=== PATIENT | female | born 1955 | race Caucasian/White ===

== ENCOUNTER → 2018-01-19 | Outpatient (CLI) | payer BC ==
[2018-01-19] VITALS (8 sets, daily range): BP systolic 133–170; BP diastolic 58–87
[~2018-01-19] VITALS: Ht 170.2 cm; Wt 77.1 kg
[~2018-01-19] MED LIST: ASPIR 8181 MG; CARDIZEM CD120 MG PO; CRESTOR5 MG
[2018-01-19 08:44] LABS: HEMATOCRIT 37.6 % (37.0-47.0); HEMOGLOBIN 12.6 gm/dL (12.0-15.0); MCH 27.6 pg (26.0-34.0); MCHC 33.5 g/dL (28.0-37.0); MCV 82.4 fL (80.0-100.0); MPV 9.8 fl. (7.2-11.1); RBC 4.56 mil/uL (4.20-5.00); RDW-CV 14.5 % (10.5-14.5); WBC 6.3 thou/uL (4.0-11.0)
[2018-01-19 08:45] LABS: APTT 27.8 Seconds (25.0-31.3); PROTIME 9.8 Seconds (9.20-11.50)
[2018-01-19 09:16] LABS: ANION GAP 8 mmol/L (7-16); BUN 16 mg/dL (7-18); CALCIUM 8.8 mg/dL (8.5-10.1); CHLORIDE 105 mmol/L (98-107); CO2 28 mmol/L (21-32); CREATININE 0.7 mg/dL (0.6-1.3); GLUCOSE 97 mg/dL (70-99); POTASSIUM 3.7 mmol/L (3.5-5.1); SODIUM 141 mmol/L (136-145)
[2018-01-19 09:21] LABS: ALBUMIN 3.7 g/dL (3.4-5.0); ALKALINE PHOSPHATASE 113 U/L (46-116); CHOLESTEROL 119 mg/dL (<200); HDL CHOLESTEROL 54 mg/dL (>40); LDL CHOLESTEROL 54 mg/dL (<100); SGOT 22 U/L (15-37); SGPT 29 U/L (30-65); TC:HDL 2.2 Ratio (Not establshd); TOTAL BILIRUBIN 0.4 mg/dL (<0.1-1.0); TOTAL PROTEIN 7.5 g/dL (6.4-8.2); TRIGLYCERIDE 57 mg/dL (<150); VLDL 11 mg/dL (<40)
[2018-01-19 09:22] LABS: SERUM ASSESSMENT Clear
--- NOTE | 2018-01-19 11:30 | H ---
[place] [address] HISTORY AND PHYSICAL Name: VICTOR HUGO FITZPATRICK Armani Room: [facility]#: [id number] Admission: 01/19/18 Attend Phys: Vadim Hudson MD Discharge: Date of : 55 Report #: [id number] THIS REPORT FOR: //name// CC: Delicia Hudson DATE OF SERVICE: 01/19/2018 PRIMARY CARE PHYSICIAN: KALYAN Ybarra. CHIEF COMPLAINT: Shortness of breath, abnormal stress test. HISTORY OF PRESENT ILLNESS: The patient is a 62-year-old female with high blood pressure, tobacco use and hyperlipidemia, had an abnormal stress echo, which was ordered for chest discomfort. She had ST segment changes and inferior wall motion abnormality. Ejection fraction was normal. Clinically, she is without chest pain, but has shortness of breath with only moderate activity, and this has been progressively worse over the last several weeks. She has been hypertensive. She has no documented history of heart disease. PAST MEDICAL HISTORY: Tobacco use, prior anemia, asthma, rhinitis, hypertension. PAST SURGICAL HISTORY: Tubal ligation. FAMILY HISTORY: Cancer and diabetes, but no early onset of CAD. HOME MEDICATIONS: Crestor 5 mg daily, Flonase. REVIEW OF SYSTEMS: CONSTITUTIONAL: Negative. HEENT: Negative for nosebleeds. EYES: Denies any blurred vision or loss of vision. CARDIOVASCULAR: Positive dyspnea with exertion, no chest pain, no claudication, no irregular heartbeats or leg swelling. NEUROLOGIC: No seizures, syncope, numbness or headaches. RESPIRATORY: Positive history of emphysema, no cough. No fevers or chills. HEMATOLOGIC: No anemia or bleeding disorders. RENAL: No history of kidney failure. ALLERGIES: Denies aspirin or contrast allergies or shellfish allergies. PHYSICAL EXAMINATION: VITAL SIGNS: Her blood pressure is 140/92. [place] [address] HISTORY AND PHYSICAL Name: VICTOR HUGO FITZPATRICK Room: [facility]#: [id number] Admission: 01/19/18 Attend Phys: Vadim Hudson MD Discharge: Date of : 55 Report #: [id number] GENERAL: Pleasant middle-aged woman. She is alert, no apparent distress. NECK: Supple. No jugular venous distention. CARDIOVASCULAR: Regular, I cannot hear a murmur. LUNGS: Clear to auscultation. ABDOMEN: Soft, nontender. EXTREMITIES: There is no peripheral edema. NEUROLOGIC: There are no focal deficits. LABORATORY DATA: Stress echocardiogram, 12/20/2017, revealed a resting echocardiogram demonstrated normal LV contractility, EF greater than 55%. There was aortic sclerosis without stenosis, mild mitral regurgitation, mild tricuspid regurgitation. Post-stress images showed an inferior wall motion abnormality. IMPRESSION: 1. Dyspnea. 2. Abnormal stress echocardiogram. 3. Hyperlipidemia. 4. Tobacco use prior. Based on the patient's presenting symptoms, which are likely an anginal equivalent, I have arranged for evaluation with cardiac catheterization, revascularization based on findings. <ELECTRONICALLY SIGNED> By: Vadim Hudson MD, [facility] 01/19/18 1130 [id number] Hudson MD, [facility] /nt
--- NOTE | 2018-01-19 16:07 | CARD ---
[address] [address] CARDIAC CATH REPORT Name: VICTOR HUGO FITZPATRICK Room: [facility]#: [id number] Admission: 01/19/18 Attend Phys: Vadim Hudson MD Discharge: Date of : 55 Report #: [id number] THIS REPORT FOR: //name// APPROVED REPORT Study performed: 01/19/2018 07:46:24 Patient Details Patient Status: Out-Patient Room #: The patient is a 62 year-old female Event Personnel Vadim Hudson Child Adolescent Care, Brandee Chinchilla RN Mold Operator, Cesilia Cardenas RN Monitor, Lynn Spears Scrub Procedures Performed Art Access - R radial artery Left Heart Cath w/or w/o Coronaries [id number] [facility] Hemostasis w/ hemoband Indication Positive stress test Procedure Narrative A Slender Glidesheath sheath was inserted into the right radial artery. Coronary angiography was performed using coronary diagnostic catheters. The right coronary system was accessed and visualized with a DCR: Dundee 4.0 5fr catheter. The left coronary system was accessed and visualized with a DCR: Dundee 4.0 5fr catheter. The left ventricle was accessed and visualized with a PC: Angled Pig 5fr catheter. The patient tolerated the procedure well and there were no complications associated with the procedure. There was no hematoma. Intraoperative Conscious Sedation Fentanyl 50 mcg Fluoro Time: 8.1 minutes Dose: 811 mGy Contrast Type and Amount: Visipaque 110 ml Coronary Angiography The patient's coronary anatomy is co- dominant. Diagnostic Cath Left Main short normal LAD mid body tortortuous 30% stenosis [address] [address] CARDIAC CATH REPORT Name: VICTOR HUGO FITZPATRICK Room: [facility]#: [id number] Admission: 01/19/18 Attend Phys: Vadim Hudson MD Discharge: Date of : 55 Report #: [id number] Diagonal 1 branching,larger, mid body 40% stenosis Circumflex normal OM1 branching mid 50% OM2 small normal OM3 normal, small L PDA small normal Right Coronary small tortuous, mild 30% mid to distal stenosis R PDA small, normal Left Ventriculography The left ventricle is normal in size with normal contractility. The left ventricular ejection fraction is estimated to be >55%. Left ventricular wall motion abnormalities are not present. There is no mitral insufficiency. EDP normal,this a 5mmHg peak to peak gradient across moderately calcified aortic valve Hemodynamics The aortic pressure is 123/71 mmHg with a mean of 95 mmHg. The left ventricular pressure is 116/2 mmHg with a mean of mmHg. The left ventricular end diastolic pressure is 11 mmHg. Conclusion 1. Mild to moderate CAD 2. normal LV function 3. very mild aortic stenosis <ELECTRONICALLY SIGNED> By: Vadim Hudson MD, FAC 01/19/18 1607 1607 [id number] Hudson MD, [facility] /INF
== END | disposition home or self-care (01) ==
LOC: M.CL 07:10
PROVIDERS: Internal Medicine Cardiovascular Disease
DX: I25.10 Atherosclerotic heart disease of native coronary artery without angina pectoris (principal); I35.0 Nonrheumatic aortic (valve) stenosis; I10 Essential (primary) hypertension; E78.00 Pure hypercholesterolemia, unspecified; J45.909 Unspecified asthma, uncomplicated; F17.210 Nicotine dependence, cigarettes, uncomplicated; Z98.51 Tubal ligation status; Z86.2 Personal history of diseases of the blood and blood-forming organs and certain disorders involving the immune mechanism; Z79.82 Long term (current) use of aspirin; Z79.899 Other long term (current) drug therapy